=== PATIENT | male | born 1975 | race Caucasian/White ===

== ENCOUNTER 2024-08-30 15:11 | Observation (INO) | payer BC ==
--- NOTE | 2024-08-30 15:42 | ED ---
General Adult HPI - General Source: patient, EMS, RN notes reviewed Mode of arrival: EMS Limitations: no limitations <Reyna Kwok - Last Filed: 08/30/24 15:41> - General Source: patient, family, EMS, RN notes reviewed Mode of arrival: EMS Limitations: no limitations <Jessenia Abraham - Last Filed: 08/30/24 23:07> - General Chief complaint: Chest Pain Stated complaint: R arm/flank pain Time Seen by Provider: 08/30/24 15:30 - History of Present Illness Initial comments: Quick [id number] male presents emergency department via EMS for complaint of right anterior chest, neck, and shoulder pain that started approximately half hours ago. Describes his pain as a sharp sensation associated with shortness of breath. History of diabetes and hyperlipidemia. Denies associated diaphoresis or nausea. (Reyna Kwok) 49-year-old male accompanied by his presented to the ER via EMS for evaluation of right-sided chest discomfort. Patient states this morning he started to have a sharp stabbing right lower chest discomfort. He states pain did start to radiate into his neck. He endorses associated shortness of breath along with the pain. Patient does admit to recent nausea as well but denies vomiting. He denies any recent fevers, cough or congestion. Patient is a daily smoker. He is a known diabetic. He denies any diaphoresis, dizziness, lightheadedness, abdominal pain, vomiting, constipation/diarrhea or peripheral edema. (Jessenia Abraham) - Related Data Home Medications Medication Instructions Recorded Confirmed Atorvastatin [Lipitor] 20 mg PO HS 08/30/24 08/30/24 metFORMIN HCL [Glucophage] 500 mg PO BID 08/30/24 08/30/24 Allergies Allergy/AdvReac Type Severity Reaction Status Date / Time No Known Allergies Allergy Verified 08/30/24 15:19 Review of Systems ROS Other: All systems not noted in ROS Statement are negative. <Reyna Kwok - Last Filed: 08/30/24 15:41> ROS Other: All systems not noted in ROS Statement are negative. <Jessenia Abraham - Last Filed: 08/30/24 23:07> ROS Statement: Those systems with pertinent positive or pertinent negative responses have been documented in the HPI. Past Medical History Past Medical History: Diabetes Mellitus, Hyperlipidemia History of Any Multi-Drug Resistant Organisms: None Reported Additional Past Surgical History / Comment(s): carpal tunnel release Past Psychological History: No Psychological Hx Reported Smoking Status: Current every day smoker Past Alcohol Use History: None Reported Past Drug Use History: Marijuana <Reyna Kwok - Last Filed: 08/30/24 15:41> General Exam Limitations: no limitations <Reyna Kwok - Last Filed: 08/30/24 15:41> Limitations: no limitations General appearance: alert, in no apparent distress ENT exam: Present: normal exam, normal oropharynx, mucous membranes moist Neck exam: Present: normal inspection. Absent: tenderness, meningismus, lymphadenopathy Respiratory exam: Present: wheezes (Expiratory right side) Cardiovascular Exam: Present: normal rhythm, tachycardia, normal heart sounds GI/Abdominal exam: Present: soft, normal bowel sounds. Absent: distended, tenderness, guarding, rebound, rigid Extremities exam: Present: normal inspection, full ROM, normal capillary refill. Absent: tenderness, pedal edema, joint swelling, calf tenderness Neurological exam: Present: alert, oriented X3, CN II-XII intact Skin exam: Present: warm, dry, intact, normal color. Absent: rash <Jessenia Abraham - Last Filed: 08/30/24 23:07> - General Exam Comments Initial Comments: Visual Physical Exam Vital signs reviewed General: Well-appearing, nontoxic, no acute distress. Head: Normocephalic, atraumatic Eyes: PERRLA, EOMI ENT: Airway patent Chest: Nonlabored breathing Skin: No visual rash, normal skin tone Neuro: Alert and oriented 3 Musculoskeletal: No gross abnormalities (Reyna Kwok) Course <Jessenia Abraham - Last Filed: 08/30/24 23:07> Vital Signs 08/30/24 08/30/24 15:16 18:08 Temperature 99.6 F 100.3 F H Pulse Rate 111 H 109 H Respiratory 18 Rate Blood Pressure 131/88 O2 Sat by Pulse 96 96 Oximetry - Reevaluation(s) Reevaluation #1: 08/30/24 19:39 Sepsis criteria met 15:44 [place] body weight: 73 kg. Fluid based on 70kg as it is patient's weight at 2100ml bolus Infection identified 18:51-this was delayed as patient was holding in waiting room. Patient originally seen as a quick note where basic laboratory test and cardiac workup initiated. Antibiotics ordered 18:56 (Jessenia Abraham) EKG Findings - EKG Comments: EKG Findings:: EKG taken at 15: 25 showing a sinus tachycardia. No ST segment deviations. There is inverted T waves noted in lead III and aVF. Right axis deviation. Ventricular rate 106, NE interval 122, QRS duration 102, QT/QTc 328/390. <Jessenia Abraham - Last Filed: 08/30/24 23:07> Procedures - Sepsis Sepsis Focused Exam #1 Time Sepsis Criteria Met: 15:45 (patient is waiting room origionally seen as a quick note) <Jessenia Abraham - Last Filed: 08/30/24 23:07> Medical Decision Making <Reyna Kwok - Last Filed: 08/30/24 15:41> - Lab Data Result diagrams: 08/30/24 15:33 08/30/24 15:33 - EKG Data -: EKG Interpreted by Me - Radiology Data Radiology results: report reviewed, image reviewed <Jessenia Abraham - Last Filed: 08/30/24 23:07> - Medical Decision Making I completed the quick note portion of this chart signed Reyna Kwok PA-C (Reyna Kwok) Was pt. sent in by a medical professional or institution (TOAN Dougherty, FILM RECORDIST, urgent care, hospital, or fci...) When possible be specific @ -No Did you speak to anyone other than the patient for history (EMS, parent, family, police, friend...)? What history was obtained from this source @ -Patient's mother and , at bedside, aiding in HPI and past medical history. Did you review nursing and triage notes (agree or disagree)? Why? @ -I reviewed and agree with nursing and triage notes Were old charts reviewed (outside hosp., previous admission, EMS record, old EKG, old radiological studies, urgent care reports/EKG's, fci records)? Report findings @ -No old charts were reviewed Differential Diagnosis (chest pain, altered mental status, abdominal pain women, abdominal pain men, vaginal bleeding, weakness, fever, dyspnea, syncope, headache, dizziness, GI bleed, back pain, seizure, CVA, palpatations, mental health, musculoskeletal)? @ -Differential Chest Pain:Stable Angina, Unstable Angina, STEMI, NSTEMI Aortic Dissection, Pneumothorax, Musculoskeletal, Esophageal Spasm GERD, Cholecystitis, Pancreatitis, Zoster, this is not meant to be an all-inclusive list. EKG interpreted by me (3pts min.). @ -As above X-rays interpreted by me (1pt min.). @ -CXR interpreted by me negative for focal consolidations, pneumothorax or pleural effusions. CT interpreted by me (1pt min.). @ -Chest CTA showing no acute evidence of central pulmonary embolism. Limited evaluation of segmental and subsegmental branches. There is a right lower lung space opacity concerning of pneumonia. U/S interpreted by me (1pt. min.). @ -None done What testing was considered but not performed or refused? (CT, X-rays, U/S, labs)? Why? @ -None What meds were considered but not given or refused? Why? @ -None Did you discuss the management of the patient with other professionals (professionals i.e. , PA, FILM RECORDIST, lab, RT, psych nurse, clinical social work therapist, champagne maker, teacher, sailing officer, case management assistant)? Give summary @ -Case discussed with [facility], Dr. George for admission. Was smoking cessation discussed for >3mins.? @ -I discussed smoking cessation for greater than 3 minutes. The risk of smoking were discussed with the patient including but not limited to risks of cancer, stroke, coronary artery disease and COPD. Also discussed with patient were multiple methods of quitting smoking. Lastly we discussed the financial cost of smoking. Was critical care preformed (if so, how long)? @ -Yes, 31 minutes Were there social determinants of health that impacted care today? How? (Homelessness, low income, unemployed, alcoholism, drug addiction, transportation, low edu. Level, literacy, decrease access to med. care, care home, rehab)? @ -No Was there de-escalation of care discussed even if they declined (Discuss DNR or withdrawal of care, Hospice)? DNR status @ -No What co-morbidities impacted this encounter? (DM, HTN, Smoking, COPD, CAD, Cancer, CVA, ARF, Chemo, Hep., AIDS, mental health diagnosis, sleep apnea, morbid obesity)? @ -Diabetes mellitus, hyperlipidemia, smoker Was patient admitted / discharged? Hospital course, mention meds given and route, prescriptions, significant lab abnormalities, going to OR and other p ertinent info. @ -Admitted. 49-year-old male presented the ER for evaluation of right-sided chest pain. Patient originally seen at a quick note and his cardiac workup was initiated. Upon rooming, history and physical exam completed.Patient febrile at 101.3F with associated tachycardia at 109. Vitals otherwise within acceptable limits. Laboratory studies showing a leukocytosis of 20.5 with a left shift. Lactic acid 1.7. Hypomagnesemia 1.5 this will be supplemented. Otherwise CMP unimpressive. Troponin x 2 negative. Viral swabs negative. CXR initially negative. CTA chest was performed at that time given concern of leukocytosis and fever showing a right lower lung pneumonia. No evidence of central pulmonary embolism. Limited evaluation of segmental and subsegmental branches. Patient met sepsis criteria at 15: 44 with leukocytosis and fever. Infection identified at 18: 51 this was delayed as patient was holding in the waiting room and was originally seen as a quick note. Antibiotics ordered at 18: 56. Blood cultures obtained. Patient started on IV Rocephin and azithromycin. Admission considered and discussed for further treatment of pneumonia and sepsis with [facility], . ID on consult. Patient given 2100 mL fluid bolus and started on maintenance fluid at 130 cc/h. Tylenol, ibuprofen and DuoNeb treatment given in the ER. Patient agreeable for admission. Patient admitted in stable condition. Case discussed with ED attending, Dr. Lou. Undiagnosed new problem with uncertain prognosis? @ -No Drug Therapy requiring intensive monitoring for toxicity (Heparin, Nitro, Insulin, Cardizem)? @ -No Were any procedures done? @ -No Diagnosis/symptom? @ -Sepsis/pneumonia Acute, or Chronic, or Acute on Chronic? @ -Acute Uncomplicated (without systemic symptoms) or Complicated (systemic symptoms)? @ -Complicated Side effects of treatment? @ -No Exacerbation, Progression, or Severe Exacerbation? @ -No Poses a threat to life or bodily function? How? (Chest pain, USA, ID, pneumonia, PE, COPD, DKA, ARF, appy, cholecystitis, CVA, Diverticulitis, Homicidal, Suicidal, threat to staff... and all critical care pts) @ -Yes, sepsis can lead to endorgan dysfunction which can be life-threatening. (Jessenia Abraham) - Lab Data Lab Results 08/30/24 08/30/24 08/30/24 Range/Units 15:33 15:33 15:33 WBC 20.5 H (3.8-10.6) k/uL RBC 4.95 (4.30-5.90) m/uL Hgb 15.5 (13.0-17.5) gm/dL Hct 46.4 (39.0-53.0) % MCV 93.8 (80.0-100.0) fL MCH 31.3 (25.0-35.0) pg MCHC 33.4 (31.0-37.0) g/dL RDW 12.3 (11.5-15.5) % Plt Count 284 (150-450) k/uL MPV 7.4 Neutrophils % 88 % Lymphocytes % 6 % Monocytes % 5 % Eosinophils % 1 % Basophils % 0 % Neutrophils # 17.9 H (1.3-7.7) k/uL Lymphocytes # 1.3 (1.0-4.8) k/uL Monocytes # 0.9 (0-1.0) k/uL Eosinophils # 0.2 (0-0.7) k/uL Basophils # 0.0 (0-0.2) k/uL PT 10.0 (10.0-12.5) sec INR 0.9 (<1.2) APTT 22.3 (22.0-30.0) sec Sodium 133 L (137-145) mmol/L Potassium 4.5 (3.5-5.1) mmol/L Chloride 93 L (98-107) mmol/L Carbon Dioxide 29 (22-30) mmol/L Anion Gap 11 mmol/L BUN 15 (9-20) mg/dL Creatinine 0.59 L (0.66-1.25) mg/dL Est GFR (CKD-EPI)AfAm >90 (>60 ml/min/1.73 sqM) Est GFR (CKD-EPI)NonAf >90 (>60 ml/min/1.73 sqM) Glucose 274 H (74-99) mg/dL POC Glucose (mg/dL) (70-110) mg/dL POC Glu Powder Hand ID Calcium 9.6 (8.4-10.2) mg/dL Magnesium 1.5 L (1.6-2.3) mg/dL Total Bilirubin 0.8 (0.2-1.3) mg/dL AST 18 (17-59) U/L ALT 32 (4-49) U/L Alkaline Phosphatase 104 (38-126) U/L Troponin I (0.000-0.034) ng/mL Total Protein 7.2 (6.3-8.2) g/dL Albumin 4.4 (3.5-5.0) g/dL Influenza Type A (PCR) (Not Detectd) Influenza Type B (PCR) (Not Detectd) RSV (PCR) (Not Detectd) SARS-CoV-2 (PCR) (Not Detectd) 08/30/24 08/30/24 08/30/24 Range/Units 15:33 18:01 18:08 WBC (3.8-10.6) k/uL RBC (4.30-5.90) m/uL Hgb (13.0-17.5) gm/dL Hct (39.0-53.0) % MCV (80.0-100.0) fL MCH (25.0-35.0) pg MCHC (31.0-37.0) g/dL RDW (11.5-15.5) % Plt Count (150-450) k/uL MPV Neutrophils % % Lymphocytes % % Monocytes % % Eosinophils % % Basophils % % Neutrophils # (1.3-7.7) k/uL Lymphocytes # (1.0-4.8) k/uL Monocytes # (0-1.0) k/uL Eosinophils # (0-0.7) k/uL Basophils # (0-0.2) k/uL PT (10.0-12.5) sec INR (<1.2) APTT (22.0-30.0) sec Sodium (137-145) mmol/L Potassium (3.5-5.1) mmol/L Chloride (98-107) mmol/L Carbon Dioxide (22-30) mmol/L Anion Gap mmol/L BUN (9-20) mg/dL Creatinine (0.66-1.25) mg/dL Est GFR (CKD-EPI)AfAm (>60 ml/min/1.73 sqM) Est GFR (CKD-EPI)NonAf (>60 ml/min/1.73 sqM) Glucose (74-99) mg/dL POC Glucose (mg/dL) 309 H (70-110) mg/dL POC Glu Powder Hand LAURA Urena Calcium (8.4-10.2) mg/dL Magnesium (1.6-2.3) mg/dL Total Bilirubin (0.2-1.3) mg/dL AST (17-59) U/L ALT (4-49) U/L Alkaline Phosphatase (38-126) U/L Troponin I <0.012 (0.000-0.034) ng/mL Total Protein (6.3-8.2) g/dL Albumin (3.5-5.0) g/dL Influenza Type A (PCR) Not Detected (Not Detectd) Influenza Type B (PCR) Not Detected (Not Detectd) RSV (PCR) Not Detected (Not Detectd) SARS-CoV-2 (PCR) Not Detected (Not Detectd) - EKG Data EKG Comments: EKG taken at 17: 59 showing a sinus tachycardia. No ST segment or T wave abnormalities. Normal axis. Ventricular rate 107, NE interval 128, QRS duration 105, QT/QTc 331/393. (Jessenia Abraham) Disposition <Reyna Kwok - Last Filed: 08/30/24 15:41> Time of Disposition: 19:35 <Jessenia Abraham - Last Filed: 08/30/24 23:07> Clinical Impression: Pneumonia, Sepsis Disposition: ADMITTED IP TO THIS HOSP Condition: Stable
[2024-08-30 15:55] LABS: Basophils % (A) 0 %; Eosinophils # (A) 0.2 k/uL (0-0.7); Eosinophils % (A) 1 %; HCT 46.4 % (39.0-53.0); HGB 15.5 gm/dL (13.0-17.5); Lymphocytes # (A) 1.3 k/uL (1.0-4.8); Lymphocytes % (A) 6 %; MCH 31.3 pg (25.0-35.0); MCHC 33.4 g/dL (31.0-37.0); MCV 93.8 fL (80.0-100.0); Mean Platelet Volume 7.4; Monocytes # (A) 0.9 k/uL (0-1.0); Monocytes % (A) 5 %; Neutrophils # (A) 17.9 k/uL (1.3-7.7); Neutrophils % (A) 88 %; Platelet Count 284 k/uL (150-450); RBC 4.95 m/uL (4.30-5.90); RDW 12.3 % (11.5-15.5); WBC 20.5 k/uL (3.8-10.6)
[2024-08-30 16:04] LABS: INR 0.9 (<1.2); Partial Thromboplastin Time 22.3 sec (22.0-30.0)
--- NOTE | 2024-08-30 16:04 | XR ---
EXAMINATION TYPE: XR chest 2V DATE OF EXAM: 08/30/2024 3:49 PM COMPARISON: none CLINICAL INDICATION: Male, 49 years old with history of Chest Pain; TECHNIQUE: XR chest 2V Frontal and lateral views of the chest. FINDINGS: Lungs/Pleura: There is no evidence of pleural effusion, focal consolidation, or pneumothorax. Pulmonary vascularity: Unremarkable. Heart/mediastinum: Cardiomediastinal silhouette is unremarkable. Musculoskeletal: No acute osseous pathology. IMPRESSION: No acute cardiopulmonary disease/process. [facility], , 08/30/2024 4:02 PM
[2024-08-30 16:12] LABS: ALT 32 U/L (4-49); AST 18 U/L (17-59); African American GFR (CKD) >90 (>60 ml/min/1.73 sqM); Albumin 4.4 g/dL (3.5-5.0); Alkaline Phosphatase 104 U/L (38-126); Anion Gap 11 mmol/L; Blood Urea Nitrogen 15 mg/dL (9-20); Calcium 9.6 mg/dL (8.4-10.2); Carbon Dioxide 29 mmol/L (22-30); Chloride 93 mmol/L (98-107); Glucose 274 mg/dL (74-99); Magnesium 1.5 mg/dL (1.6-2.3); Non-African American GFR(CKD) >90 (>60 ml/min/1.73 sqM); Potassium 4.5 mmol/L (3.5-5.1); Sodium 133 mmol/L (137-145); Total Bilirubin 0.8 mg/dL (0.2-1.3); Total Protein 7.2 g/dL (6.3-8.2)
[2024-08-30 18:02] LABS: Glucose,Whole Blood 309 mg/dL (70-110)
--- NOTE | 2024-08-30 18:55 | CT ---
EXAMINATION TYPE: CT angio chest DATE OF EXAM: 08/30/2024 6:44 PM COMPARISON: 03/09/2013 CLINICAL INDICATION: Male, 49 years old with history of SOB right sided CP; SOB , Rt side CP. TECHNIQUE/CONTRAST: CTA scan of the thorax is performed with IV Contrast, patient injected with 100 ml mL of Isovue 370, MIP images are created and reviewed these are created on a separate workstation.. CT DLP: 285 mGycm, Automated exposure control for dose reduction was used. FINDINGS: Lungs/Pleura: Right lower lung airspace opacities. No evidence of pleural effusion or pneumothorax. Airway: Large airways are patent. Heart: Size within normal limits Vasculature: Limited evaluation due to bolus timing, no evidence for central pulmonary embolus. The lobar, segmental and subsegmental branches are limited due to bolus timing. The pulmonary artery is o f normal size. Mediastinum: No gross evidence of adenopathy. Musculoskeletal: Mild disc degeneration changes are present throughout the thoracolumbar spine second lenny to osteophyte formation and facet joint arthropathy. Soft Tissues/lymph nodes: Unremarkable. Lower neck: No significant findings. Upper Abdomen: No significant findings. IMPRESSION: 1. No evidence of central pulmonary embolism. Limited evaluation of the segmental and subsegmental br anches. 2. Right lower lung airspace opacities concerning for pneumonia. [facility], , 08/30/2024 6:53 PM
[2024-08-30 19:08] LABS: Influenza A Not Detected (Not Detectd); Influenza B Not Detected (Not Detectd); RSV Not Detected (Not Detectd)
[2024-08-30] MEDS ORDERED: NALOXONE 0.4 MG/ML 1 ML VIAL IV PRN (19:43)
[2024-08-30] MEDS ORDERED: ONDANSETRON 4 MG/2 ML VIAL IVP PRN (19:43)
[2024-08-30] MEDS: ACETAMINOPHEN TAB 325 MG TAB PO STA (20:14)
[2024-08-30] MEDS: IBUPROFEN 400 MG TAB PO PRN (20:14)
[2024-08-30] MEDS: SODIUM CHLORIDE 0.9% 1,000 ML IV STA ×3 (20:16→23:54)
[2024-08-30] MEDS: AZITHROMYCIN 500 MG TAB PO STA (20:22)
[2024-08-30] MEDS: MAGNESIUM SULFATE-D5W PMX 1 GM in DEXTROSE/WATER 1 100ML.BAG IVPB SCH (20:29)
[2024-08-30] MEDS: IBUPROFEN 600 MG TAB PO STA (20:34)
[2024-08-30] MEDS: IPRATROPIUM-ALBUTEROL 3 ML NEB INHALATION STA (23:27)
[2024-08-31 06:39] LABS: Glucose,Whole Blood 237 mg/dL (70-110)
[2024-08-31] MEDS: metFORMIN 500 MG TAB PO SCH (06:52)
[2024-08-31] MEDS: SODIUM CHLORIDE 0.9% 1,000 ML IV SCH (09:09)
[2024-08-31] MEDS ORDERED: DEXTROSE 50% SYRINGE 50 ML IVP PRN ×2 (10:45)
[2024-08-31 11:55] LABS: Glucose,Whole Blood 273 mg/dL (70-110)
[2024-08-31] MEDS: INSULIN ASPART (NovoLOG) 100 UNIT/ML VIAL SQ SCH (12:14)
--- NOTE | 2024-08-31 14:54 | P.HPIM ---
History of Present Illness H&P Date: 08/31/24 Chief Complaint: Chest Pain Patient is a 49-year-old with past medical history of diabetes and hyperlipidemia presented to the ER with chief complaint of right-sided chest pain that was sharp and radiated to his neck and shoulder blades which began while he was driving home. He also states the chest pain gets worse when he takes deep breaths. He states he has been feeling off all of yesterday. He still endorsing shortness of breath. He denies any history of MIs, strokes, use of blood thinners cardiac catheterization or stent placement. He does endorse a significant family history of strokes and heart attacks. He also endorsed a fever of 100.3. He denies nausea, vomiting, diarrhea, chills, pain or urinary plaints. Vitals on admission temperature is 99.6, heart rate 111, respiratory rate 18, blood pressure 131/88, O2 saturation 96% on room air EKG independently interpreted as sinus tachycardia rate 107 bpm and QTc of 393 ms CXR shows right basilar airspace opacities concerning for pneumonia CTA shows no evidence of pulmonary embolism, right lower lung airspace opacities concerning for pneumonia Labs on admission show WBCs 20.5, hemoglobin 15.5, platelets 284. PT 10, INR 09, PTT 22.3. Sodium 133, potassium 4.5, chloride 93, BUN 15, creatinine 0.59, glucose 274. Calcium 9.6. Magnesium 1.5. Troponin x 2 negative. Cepheid was negative. Review of systems: Pertinent positives and negatives as discussed in HPI, a complete review of systems was performed and all other systems are negative. Allergies: NKDA PCP: Dr. Workman in [place] Social history: Tobacco: pack every 4 days Alcohol: none Recreational drugs: marijuana occassionally Travel: none Sick contacts: none Physical examination: Vital signs reviewed General: nontoxic, no distress, appears at stated age Derm: warm, dry, intact Head: atraumatic, normocephalic, symmetric Eyes: anicteric sclera Mouth: no lip lesion, mucus membranes moist Cardiovascular: S1 S2 reg, no murmur Lungs: CTA bilateral, no rhonchi, no rales, no accessory muscle use Abdominal: soft, non-tender to palpation, nondistended Extremities: No cyanosis, clubbing, or pedal edema. Neuro: Alert, Oriented to person, time and place, Gross neurological examination did not reveal any focal deficits. Cranial nerves II to XII grossly intact. Bilateral upper and lower extremity muscle strength intact and sensation intact. Psych: well appearing, appropriate affect Assessment/Plan: Patient is a 49-year-old with past medical history of diabetes and hyperlipidemia presented to the ER with chief complaint of right-sided chest painradiates to his neck and shoulder blades. Active: Sepsis likely secondary to community-acquired pneumonia Continue Zithromax 500 mg p.o. Continue Rocephin 2 g every 24 hours Continue IV fluids Follow-up sputum culture Follow-up blood culture Non-insulin dependent diabetes Will hold metformin while inpatient Accu-Cheks per [facility] protocol Will start low-dose insulin sliding scale Hypoglycemia precautions Follow-up A1c Hypomagnesemia Repleted Follow up with AM labs Chronic: Hyperlipidemia Continue Lipitor 20 mg p.o. at bedtime F: 0.9% NS at 130 mL/h E: Replete as needed N: Consistent carbohydrate A: As tolerated DVT prophylaxis: Lovenox 40 mg subcu daily The patient is admitted with an anticipated more than 2 midnight stay for evaluation of sepsis, pneumonia CODE STATUS: Full code Discussed with: Patient Anticipated discharge place: Pending clinical course Attestation I have seen and examined this patient with my resident , discussed the same with the resident/LONNIE, and agree with the dictator's assessment and plan as written GENERAL: The patient is alert and oriented x3, not in any acute distress. Well developed, well nourished. HEENT: Pupils are round and equally reacting to light. EOMI. No scleral icterus. No conjunctival pallor. Normocephalic, atraumatic. No pharyngeal erythema. No thyromegaly. CARDIOVASCULAR: S1 and S2 present. No murmurs, rubs, or gallops. PULMONARY: Chest is clear to auscultation, no wheezing or crackles. ABDOMEN: Soft, nontender, nondistended, normoactive bowel sounds. No palpable organomegaly. MUSCULOSKELETAL: No joint swelling or deformity. EXTREMITIES: No cyanosis, clubbing, or pedal edema. NEUROLOGICAL: Gross neurological examination did not reveal any focal deficits. SKIN: No rashes. Dr. Óscar menezes Past Medical History Past Medical History: Diabetes Mellitus, Hyperlipidemia History of Any Multi-Drug Resistant Organisms: None Reported Additional Past Surgical History / Comment(s): carpal tunnel release Past Psychological History: No Psychological Hx Reported Smoking Status: Current every day smoker Past Alcohol Use History: None Reported Past Drug Use History: Marijuana Medications and Allergies Home Medications Medication Instructions Recorded Confirmed Type Atorvastatin [Lipitor] 20 mg PO HS 08/30/24 08/30/24 History metFORMIN HCL [Glucophage] 500 mg PO BID 08/30/24 08/30/24 History Allergies Allergy/AdvReac Type Severity Reaction Status Date / Time No Known Allergies Allergy Verified 08/30/24 15:19 Physical Exam Vitals: Vital Signs Temp Pulse Pulse Resp BP BP Pulse Ox 08/31/24 00:20 98.3 F 83 17 99/65 94 L 08/30/24 23:11 99.1 F 95 18 116/79 96 08/30/24 18:08 100.3 F H 109 H 96 08/30/24 15:16 99.6 F 111 H 18 131/88 96 Intake and Output 08/30/24 08/31/24 08/31/24 22:59 06:59 14:59 Intake Total 480 Output Total 700 Balance -220 Intake: Oral 480 Output: Urine 700 Other: # Voids 1 Weight 70.307 kg Results CBC & Chem 7: 09/01/24 04:23 09/01/24 04:23 Labs: Abnormal Lab Results - Last 24 Hours (Table) 08/30/24 08/30/24 08/30/24 Range/Units 15:33 15:33 18:01 WBC 20.5 H (3.8-10.6) k/uL Neutrophils # 17.9 H (1.3-7.7) k/uL Sodium 133 L (137-145) mmol/L Chloride 93 L (98-107) mmol/L Creatinine 0.59 L (0.66-1.25) mg/dL Glucose 274 H (74-99) mg/dL POC Glucose (mg/dL) 309 H (70-110) mg/dL Magnesium 1.5 L (1.6-2.3) mg/dL 08/31/24 Range/Units 06:37 WBC (3.8-10.6) k/uL Neutrophils # (1.3-7.7) k/uL Sodium (137-145) mmol/L Chloride (98-107) mmol/L Creatinine (0.66-1.25) mg/dL Glucose (74-99) mg/dL POC Glucose (mg/dL) 237 H (70-110) mg/dL Magnesium (1.6-2.3) mg/dL Thrombosis Risk Factor Assmnt - Choose All That Apply Any of the Below Risk Factors Present?: No Other Risk Factors: No Other congenital or acquired thrombophilia - If yes, enter type in comment: No Thrombosis Risk Factor Assessment Level: Very Low Risk
[2024-08-31] MEDS: ACETAMINOPHEN TAB 325 MG TAB PO PRN (15:11)
[2024-08-31] MEDS: MAGNESIUM SULFATE-D5W PMX 1 GM in DEXTROSE/WATER 1 100ML.BAG IVPB SCH (15:11)
[2024-08-31 16:49] LABS: Glucose,Whole Blood 340 mg/dL (70-110)
--- NOTE | 2024-08-31 17:32 | P.CONS ---
History of Present Illness - Reason for Consult Consult date: 08/31/24 Sepsis, pneumonia Requesting physician: Jessenia Abraham - Chief Complaint Right-sided chest pain x 1 day - History of Present Illness Patient is a 49-year-old male with a past medical history significant for diabetes mellitus hyperlipidemia current everyday smoker presenting to the hospital for evaluation of right lower rib cage pain that apparently started the day of presentation to the hospital patient mention he woke up in the morning with the symptoms ended up going to workup however his symptoms got worse to the point that it was hard for him to take a deep breath patient intensity of the pain was almost 10 of 10 severity without radiation he did have a cough mild to moderate intensity with occasional sputum production which is slightly blood tinged, patient did have some chills and did have low-grade fever 100.3 F on presentation to the hospital patient was tachycardic but not hypotensive or hypoxic and no need for supplemental oxygen patient did tested negative for influenza RSV and COVID he did have white count of 20.5 with a left shift cr eatinine 0.59 electrolyte has been normal liver isms are normal patient did have a chest x-ray right basilar airspace opacity concerning for pneumonia though initially reported as negative for acute infiltrate he did have a CT angiogram of the chest no evidence of PE right lower lung opacity concerning for pneumonia patient was started on Rocephin and Zithromax infectious disease was consulted for further management of antibiotic therapy Review of Systems Positive point and negatives has been mentioned in the HPI, complete review of systems was performed and all other systems are negative Past Medical History Past Medical History: Diabetes Mellitus, Hyperlipidemia History of Any Multi-Drug Resistant Organisms: None Reported Additional Past Surgical History / Comment(s): carpal tunnel release Past Psychological History: No Psychological Hx Reported Smoking Status: Current every day smoker Past Alcohol Use History: None Reported Past Drug Use History: Marijuana Medications and Allergies Home Medications Medication Instructions Recorded Confirmed Type Atorvastatin [Lipitor] 20 mg PO HS 08/30/24 08/30/24 History metFORMIN HCL [Glucophage] 500 mg PO BID 08/30/24 08/30/24 History Allergies Allergy/AdvReac Type Severity Reaction Status Date / Time No Known Allergies Allergy Verified 08/30/24 15:19 Physical Exam Vitals: Vital Signs Temp Pulse Pulse Resp BP BP Pulse Ox 08/31/24 06:53 98.2 F 93 16 118/73 97 02/08/25 00:20 98.3 F 83 17 99/65 94 L 08/30/24 23:11 99.1 F 95 18 116/79 96 08/30/24 18:08 100.3 F H 109 H 96 08/30/24 15:16 99.6 F 111 H 18 131/88 96 Intake and Output 08/30/24 08/31/24 08/31/24 22:59 06:59 14:59 Intake Total 480 Output Total 700 Balance -220 Intake: Oral 480 Output: Urine 700 Other: # Voids 1 Weight 70.307 kg GENERAL DESCRIPTION: Middle-aged male lying in bed, no distress. No tachypnea or accessory muscle of respiration use. HEENT: Shows Pallor , no scleral icterus. Oral mucous membrane is dry. No pharyngeal erythema or thrush NECK: Trachea central, no thyromegaly. LUNGS: Unlabored breathing. Coarse breath sound at the base more marked on the right side HEART: S1, S2, regular rate and rhythm. No loud murmur ABDOMEN: Soft, no tenderness , guarding or rigidity, no organomegaly EXTREMITIES: No edema of feet. SKIN: No rash, no masses palpable. NEUROLOGICAL: The patient is awake, alert, oriented x3, mood and affect normal. Results CBC & Chem 7: 08/30/24 15:33 08/30/24 15:33 Labs: Abnormal Lab Results - Last 24 Hours (Table) 08/30/24 08/30/24 08/30/24 Range/Units 15:33 15:33 18:01 WBC 20.5 H (3.8-10.6) k/uL Neutrophils # 17.9 H (1.3-7.7) k/uL Sodium 133 L (137-145) mmol/L Chloride 93 L (98-107) mmol/L Creatinine 0.59 L (0.66-1.25) mg/dL Glucose 274 H (74-99) mg/dL POC Glucose (mg/dL) 309 H (70-110) mg/dL Magnesium 1.5 L (1.6-2.3) mg/dL 08/31/24 08/31/24 Range/Units 06:37 11:52 WBC (3.8-10.6) k/uL Neutrophils # (1.3-7.7) k/uL Sodium (137-145) mmol/L Chloride (98-107) mmol/L Creatinine (0.66-1.25) mg/dL Glucose (74-99) mg/dL POC Glucose (mg/dL) 237 H 273 H (70-110) mg/dL Magnesium (1.6-2.3) mg/dL Assessment and Plan (1) Leukocytosis Current Visit: Yes Status: Acute Code(s): D72.829 - ELEVATED WHITE BLOOD CELL COUNT, UNSPECIFIED SNOMED Code(s): 207488931 (2) Pneumonia Current Visit: Yes Status: Acute Code(s): J18.9 - PNEUMONIA, UNSPECIFIED ORGANISM SNOMED Code(s): 016266934 (3) Sepsis Current Visit: Yes Status: Acute Code(s): A41.9 - SEPSIS, UNSPECIFIED ORGANISM SNOMED Code(s): 12467133 Plan: 1patient presented to hospital with sepsis in this patient who did have fever tachycardia elevated white count meeting currently for SIRS source is right lower lobe pneumonia likely community-acquired in this patient who did have scant sputum with blood-tinged in high clinical suspicious for Streptococcus pneumonia to be the likely pathogen this patient did have a history of smoking and likely compromise lung condition and would be high risk of complication 2-we will try to obtain a sputum for Gram stain and culture 3-Rocephin 2 g daily and Zithromax should provide adequate empiric antibiotic coverage We will follow on clinical condition and cultures to further adjust medication if needed Thank you for this consultation we will follow the patient along with you Dictation was produced using [employer] dictation software. please excuse any grammatical, word or spelling errors. Time with Patient: Greater than 30
[2024-08-31] MEDS ORDERED: TEMAZEPAM 7.5 MG CAP PO PRN (17:58)
[2024-08-31 20:41] LABS: Glucose,Whole Blood 279 mg/dL (70-110)
[2024-08-31] MEDS: HYDROcodone/APAP 5-325MG 1 EACH TAB PO PRN (21:05)
[2024-08-31] MEDS: ATORVASTATIN 20 MG TAB PO SCH (21:06)
[2024-08-31] MEDS: AZITHROMYCIN 500 MG TAB PO SCH (21:06)
[2024-08-31 21:33] VITALS: RESP 18
[2024-09-01 04:59] LABS: Basophils % (A) 0 %; Eosinophils # (A) 0.2 k/uL (0-0.7); Eosinophils % (A) 2 %; Lymphocytes # (A) 1.7 k/uL (1.0-4.8); Lymphocytes % (A) 13 %; MCHC 32.8 g/dL (31.0-37.0); MCV 94.6 fL (80.0-100.0); Mean Platelet Volume 7.3; Monocytes # (A) 0.8 k/uL (0-1.0); Monocytes % (A) 6 %; Neutrophils # (A) 9.9 k/uL (1.3-7.7); Neutrophils % (A) 78 %; Platelet Count 204 k/uL (150-450); RBC 4.01 m/uL (4.30-5.90); RDW 12.5 % (11.5-15.5); WBC 12.7 k/uL (3.8-10.6)
[2024-09-01 05:02] LABS: HGB 12.5 gm/dL (13.0-17.5)
[2024-09-01 05:14] LABS: African American GFR (CKD) >90 (>60 ml/min/1.73 sqM); Anion Gap 5 mmol/L; Blood Urea Nitrogen 14 mg/dL (9-20); Calcium 7.8 mg/dL (8.4-10.2); Carbon Dioxide 24 mmol/L (22-30); Chloride 104 mmol/L (98-107); Glucose 185 mg/dL (74-99); Non-African American GFR(CKD) >90 (>60 ml/min/1.73 sqM); Potassium 4.3 mmol/L (3.5-5.1); Sodium 133 mmol/L (137-145)
[2024-09-01 06:55] LABS: Glucose,Whole Blood 182 mg/dL (70-110)
[2024-09-01 08:38] VITALS: BP 125/76; PULSE 85; TEMP 98.9
[2024-09-01] MEDS: ENOXAPARIN 40 MG/0.4 ML SYRINGE SQ SCH (08:52)
--- NOTE | 2024-09-01 14:07 | P.DS ---
Providers Date of admission: 08/30/24 19:05 Expected date of discharge: 09/01/24 Attending physician: Rafa Park Consults: 08/30/24 19:43 Consult Physician Urgent Consulting Provider: Gustavo Da Silva Consult Reason/Comments: sepsis/pneumonia Do you want consulting provider notified?: Yes Primary care physician: [facility] Course: Discharge diagnoses; Sepsis likely secondary to community-acquired pneumonia Continue Zithromax 500 mg p.o. Continue Rocephin 2 g every 24 hours Continue IV fluids 09/01. Being discharged on oral Ceftin and azithromycin Non-insulin dependent diabetes Resume home meds Hypomagnesemia Repleted Follow up with AM labs Chronic: Hyperlipidemia Continue Lipitor 20 mg p.o. at bedtime Hospital course; Patient is a 49-year-old with past medical history of diabetes and hyperlipidemia presented to the ER with chief complaint of right-sided chest pain that was sharp and radiated to his neck and shoulder blades which began while he was driving home. He also states the chest pain gets worse when he takes deep breaths. He states he has been feeling off all of yesterday. He still endorsing shortness of breath. He denies any history of MIs, strokes, use of blood thinners cardiac catheterization or stent placement. He does endorse a significant family history of strokes and heart attacks. He also endorsed a fever of 100.3. He denies nausea, vomiting, diarrhea, chills, pain or urinary plaints. Vitals on admission temperature is 99.6, heart rate 111, respiratory rate 18, blood pressure 131/88, O2 saturation 96% on room air EKG independently interpreted as sinus tachycardia rate 107 bpm and QTc of 393 ms CXR shows right basilar airspace opacities concerning for pneumonia CTA shows no evidence of pulmonary embolism, right lower lung airspace opacities concerning for pneumonia Labs on admission show WBCs 20.5, hemoglobin 15.5, platelets 284. PT 10, INR 09, PTT 22.3. Sodium 133, potassium 4.5, chloride 93, BUN 15, creatinine 0.59, glucose 274. Calcium 9.6. Magnesium 1.5. Troponin x 2 negative. Cepheid was negative. 09/01. Patient this morning Stating that he wants to leave. Patient was counseled by the nurse to wait for admitting physician and then we will get him out of the hospital. Discharge medication were sent. Patient did not wait for the physician and left prior to evaluation. Dictation was produced using [email or web address] dictation software. please excuse any grammatical, word or spelling errors. Patient Condition at Discharge: Stable Plan - Discharge Summary New Discharge Prescriptions: New cefuroxime axetiL [Ceftin] 500 mg PO BID 4 Days #8 tab Azithromycin [Zithromax] 500 mg PO HS 2 Days #2 tab Continue metFORMIN HCL [Glucophage] 500 mg PO BID Atorvastatin [Lipitor] 20 mg PO HS Discharge Medication List Atorvastatin [Lipitor] 20 mg PO HS 08/30/24 [History] metFORMIN HCL [Glucophage] 500 mg PO BID 08/30/24 [History] Azithromycin [Zithromax] 500 mg PO HS 2 Days #2 tab 09/01/24 [Rx] cefuroxime axetiL [Ceftin] 500 mg PO BID 4 Days #8 tab 09/01/24 [Rx] Follow up Appointment(s)/Referral(s): Joseph Workman DO [Primary Care Provider] - 1-2 days Discharge Disposition: LEFT AGAINST MEDICAL ADVICE
== END 2024-09-01 11:40 | disposition left against medical advice (07) ==
LOC: EC 15:11 → 4SSUR 19:05 → INTOOBSV 19:05 → 4SSUR 22:17
PROVIDERS: ADMIT Hospitalist; ATTEND Hospitalist
DX: A41.9 Sepsis, unspecified organism (principal); J18.9 Pneumonia, unspecified organism; E11.9 Type 2 diabetes mellitus without complications; E83.42 Hypomagnesemia; E78.5 Hyperlipidemia, unspecified; F17.200 Nicotine dependence, unspecified, uncomplicated; Z79.84 Long term (current) use of oral hypoglycemic drugs; Z79.899 Other long term (current) drug therapy; Z53.29 Procedure and treatment not carried out because of patient's decision for other reasons
CPT/HCPCS: 96361; 96366 ×2; 96372; 96368; 96365; 99291; 36415; 93005; 83880; 80053; 80048; 83605; 83735 ×2; 84484; 85025 ×2; 85610; 85730; 87040; 83036; 84145; 87636; 71046; 71275; G0378 ×3; J0696 ×2; J1650; J3475 ×2; Q9967